=== PATIENT | male | born 1990 | race African-American/Black ===

== ENCOUNTER 2020-08-31 16:33 | Emergency (ER) | payer OTHER ==
[2020-08-31 16:42] VITALS: BMI 37.5
[2020-08-31 17:58] LABS: BASO % 0.5 % (0-2.0); EOS % 1.7 % (0-4.5); HEMATOCRIT 43.8 % (35.4-49); HEMOGLOBIN 14.4 GM/dL (11.7-16.9); LYMPH % 39.8 % (8-40); MCH 29.2 pg (25.7-33.7); MCHC 32.8 g/dl (32.0-35.9); MEAN CELL VOLUME 88.9 fl (80-96); MEAN PLT VOLUME 9.2 fl (7.5-11.1); MONO % 9.3 % (3.8-10.2); NEUT % 48.7 % (42.8-82.8); PLATELET COUNT 237 K/MM3 (134-434); RBC 4.92 M/mm3 (4.00-5.60); RDW 13.2 % (11.9-15.9)
[2020-08-31 18:17] LABS: CHLORIDE 106 mmol/L (98-107); POTASSIUM 4.1 mmol/L (3.5-5.1); SODIUM 140 mmol/L (136-145)
[2020-08-31 18:19] LABS: CALCIUM 9.2 mg/dL (8.5-10.1)
[2020-08-31 18:20] LABS: ANION GAP 8 MMOL/L (8-16); BLOOD UREA NITROGEN 13.1 mg/dL (7-18); CO2 26 mmol/L (21-32); GLUCOSE,RANDOM 90 mg/dL (74-106)
[2020-08-31 18:23] LABS: SGOT/AST 36 U/L (15-37); SGPT/ALT 49 U/L (13-61)
[2020-08-31 18:24] LABS: BILIRUBIN,TOTAL 0.5 mg/dL (0.2-1); TOT PROT 7.7 g/dl (6.4-8.2)
[2020-08-31 18:25] LABS: ALK PHOS 51 U/L (45-117)
[2020-08-31] MEDS ORDERED: ACETAMINOPHEN/CAFFEINE/BUTALBITAL 1 TAB PO ONE (18:33)
[2020-08-31] MEDS ORDERED: ACETAMINOPHEN/CAFFEINE/BUTALBITAL 1 TAB ONE (18:35)
[2020-08-31 18:47] VITALS: BP 156/89; PULSE 78; TEMP 98.2
== END 2020-08-31 18:47 | disposition home or self-care (01) ==
LOC: JER 16:33
DX: G44.209 Tension-type headache, unspecified, not intractable (principal)
CPT/HCPCS: 36415; 70450-TC; 71046-TC-FY; 80053; 82550; 82553; 84443; 84484; 85025; 93005; 93010; 99285-25

== ENCOUNTER 2023-08-20 19:37 | Emergency (ER) | payer OTHER ==
[2023-08-20 19:45] VITALS: BP 141/86; PULSE 96; RESP 18; TEMP 98.8; BMI 43.8
[2023-08-20] MEDS ORDERED: CLINDAMYCIN 600MG PREMIX IVPB 600 MG/50 ML BAG IVPB ONE ×2 (20:22→20:40)
[2023-08-20 20:58] LABS: BASO % 0.6 % (0-2.0); EOS % 1.9 % (0-4.5); HEMATOCRIT 42.3 % (35.4-49); HEMOGLOBIN 14.5 GM/dL (11.7-16.9); MCH 29.7 pg (25.7-33.7); MCHC 34.2 g/dl (32.0-35.9); MEAN CELL VOLUME 86.7 fl (80-96); MEAN PLT VOLUME 8.7 fl (7.5-11.1); NEUT % 52.5 % (42.8-82.8); PLATELET COUNT 319 10^3/uL (134-434); RBC 4.87 M/mm3 (4.00-5.60); RDW 13.7 % (11.9-15.9); WHITE BLOOD COUNT 11.3 K/mm3 (4.0-10.0)
[2023-08-20 21:32] LABS: POTASSIUM 3.5 mmol/L (3.5-5.1)
[2023-08-20 21:34] LABS: CALCIUM 9.2 mg/dL (8.5-10.1)
[2023-08-20 21:35] LABS: ALBUMIN 4.1 g/dl (3.4-5.0); BLOOD UREA NITROGEN 12.3 mg/dL (7-18)
[2023-08-20 21:38] LABS: CREATININE 1.1 mg/dL (0.55-1.3)
[2023-08-20 21:40] LABS: BILIRUBIN,TOTAL 0.7 mg/dL (0.2-1)
== END 2023-08-21 00:50 | disposition home or self-care (01) ==
LOC: JER 19:37
PROC: 3E03329 Introduction of Other Anti-infective into Peripheral Vein, Percutaneous Approach (ICD-10-PCS; principal; 2023-08-20)
PROC: 3E033GC Introduction of Other Therapeutic Substance into Peripheral Vein, Percutaneous Approach (ICD-10-PCS; 2023-08-20)
DX: H57.12 Ocular pain, left eye (principal); H02.846 Edema of left eye, unspecified eyelid; H10.32 Unspecified acute conjunctivitis, left eye
CPT/HCPCS: 36415; 70481-TC; 80053; 85025; 87040; 99285-25; Q9967